=== PATIENT | male | born 1970 | race Hispanic/Latino ===

== ENCOUNTER 2020-03-12 21:00 | Emergency (ER) | payer SELFPAY ==
[2020-03-12 21:44] VITALS: BP 150/76
[2020-03-12 22:08] LABS: Basophils % (Auto) 0.5 % (0.0-1.8); Eosinophils % (Auto) 0.5 % (0.0-4.3); Hematocrit 49.3 % (35.5-45.6); Hemoglobin 16.1 gm/dl (11.8-15.2); Lymphocytes # (Auto) 2.7 K/mm3 (1.2-5.4); Lymphocytes % (Auto) 26.6 % (13.4-35.0); Mean Corpuscular HGB Conc 33 % (32-34); Mean Corpuscular Volume 89 fl (84-94); Monocytes # (Auto) 0.7 K/mm3 (0.0-0.8); Monocytes % (Auto) 7.2 % (0.0-7.3); Platelet Count 223 K/mm3 (140-440); Red Blood Count 5.52 M/mm3 (3.65-5.03); Red Cell Distribution Width 16.1 % (13.2-15.2)
[2020-03-12 22:13] LABS: BUN/Creatinine Ratio 4; Blood Urea Nitrogen 4 mg/dL (9-20); Calcium 9.3 mg/dL (8.4-10.2); Hemolysis Index 10
[2020-03-12 23:26] LABS: Bilirubin,Urine NEG (Negative); Blood,Urine NEG (Negative); Color,Urine Yellow (Yellow); Mucus,Urine 1+ /HPF; Protein,Urine <15 mg/dL mg/dL (Negative); WBC,Urine < 1.0 /HPF (0.0-6.0)
[2020-03-13] MEDS ORDERED: SODIUM CHLORIDE 0.9% 1000 ML 1,000 ML IV ONE (01:17)
[2020-03-13] MEDS ORDERED: KETOROLAC 30 MG/1 ML INJ IV ONE (01:17)
[2020-03-13] MEDS ORDERED: ONDANSETRON 4 MG/2 ML INJ IV ONE (01:17)
[2020-03-13] MEDS ORDERED: FAMOTIDINE 20 MG/2 ML INJ IV ONE (01:17)
--- NOTE | 2020-03-13 03:34 | Cat Scan Report ---
CT abdomen pelvis w con INDICATION / CLINICAL INFORMATION: Patient complains of R.L.Q. abdominal pain. TECHNIQUE: Axial CT imaging of abdomen and pelvis was obtained with IV contrast. Coronal and sagittal reformatte d imaging obtained and reviewed. All CT scans at this location are performed using CT dose reduction for ALARA by means of automated exposure control. COMPARISON: None available. FINDINGS: CT abdomen with contrast demonstrates a very small cyst within the dome of the liver. The liver is ot herwise unremarkable. The spleen, pancreas, kidneys, and adrenal glands all appear grossly unremarkab le. Gallbladder has a normal appearance. No biliary dilatation. CT pelvis with contrast demonstrates normal appearance of the appendix. No pelvic mass, free fluid, o r focal inflammatory changes noted. Prostate gland is minimally enlarged. Mild diverticulosis is note d throughout the descending colon and sigmoid colon. No evidence of diverticulitis.. Visualized lung bases are clear. No acute significant osseous abnormality. IMPRESSION: 1. No acute finding within the abdomen or pelvis. More specifically no evidence for appendicitis. 2. Diverticulosis without evidence for diverticulitis. Signer Name: Mabel English MD Signed: 03/13/2020 3:29 AM Workstation Name: [employer]
--- NOTE | 2020-03-13 04:34 | Emergency Department Report ---
ED Abdominal Pain HPI - General Chief Complaint: Weakness Stated Complaint: ABD PAIN Source: patient Mode of arrival: Ambulatory Limitations: No Limitations - History of Present Illness Initial Comments: Patient is a 49-year-old -[place] male with no past medical history presents to the ED with complaint of acute onset persistent diffuse low abdominal pain with nausea and vomiting and diarrhea for the last 3 days. Patient states that he has not been able to keep anything down especially in the last 2 days. Patient denies fever, chills, chest pain, shortness of breath, dysuria, urinary frequency and urgency, testicular pain, back pain, dizziness, numbness and tingling or weakness of lower extremities bilaterally, change in vision, headache, sore throat, nasal and sinus congestion. MD Complaint: abdominal pain, other (Nausea, vomiting and diarrhea) -: Sudden, days(s) (3) Location: LLQ, RLQ, suprapubic Radiation: LLQ, RLQ, suprapubic Migration to: no migration Severity scale (0 -10): 6 Quality: cramping, sharp Consistency: constant Improves With: nothing Worsens With: nothing Context: possible food poisoning Associated Symptoms: denies other symptoms, nausea, vomiting, diarrhea. denies: fever, dysuria, hematemesis, hematochezia, melena, hematuria, anorexia, syncope, other - Related Data Previous Rx's Medication Instructions Recorded Last Taken Type Dicyclomine [Bentyl] 20 mg PO Q6H PRN #24 tablet 03/13/20 Unknown Rx Famotidine [Pepcid] 20 mg PO BID #60 tablet 03/13/20 Unknown Rx Ondansetron [Zofran Odt] 4 mg PO Q8HR PRN #20 tab.rapdis 03/13/20 Unknown Rx Allergies Allergy/AdvReac Type Severity Reaction Status Date / Time No Known Allergies Allergy Verified 03/12/20 21:39 ED Review of Systems ROS: Stated complaint: ABD PAIN Other details as noted in HPI Constitutional: denies: chills, fever Eyes: denies: eye pain, eye discharge, vision change ENT: denies: ear pain, throat pain Respiratory: denies: cough, shortness of breath, wheezing Cardiovascular: denies: chest pain, palpitations Endocrine: no symptoms reported Gastrointestinal: abdominal pain, nausea, vomiting, diarrhea Genitourinary: denies: urgency, dysuria Musculoskeletal: denies: back pain, joint swelling, arthralgia Skin: denies: rash, lesions Neurological: denies: headache, weakness, paresthesias Psychiatric: denies: anxiety, depression Hematological/Lymphatic: denies: easy bleeding, easy bruising ED Past Medical Hx - Past Medical History Previous Medical History?: No - Surgical History Past Surgical History?: No - Social History Smoking Status: Never Smoker Substance Use Type: None - Medications Home Medications: Home Medications Medication Instructions Recorded Confirmed Last Taken Type Dicyclomine [Bentyl] 20 mg PO Q6H PRN #24 tablet 03/13/20 Unknown Rx Famotidine [Pepcid] 20 mg PO BID #60 tablet 03/13/20 Unknown Rx Ondansetron [Zofran Odt] 4 mg PO Q8HR PRN #20 tab.rapdis 03/13/20 Unknown Rx ED Physical Exam - General Limitations: No Limitations General appearance: alert, in no apparent distress - Head Head exam: Present: atraumatic, normocephalic, normal inspection - Eye Eye exam: Present: normal appearance, PERRL, EOMI Pupils: Present: normal accommodation - ENT ENT exam: Present: normal exam, normal orophraynx, mucous membranes moist, TM's normal bilaterally, normal external ear exam - Neck Neck exam: Present: normal inspection, full ROM - Respiratory Respiratory exam: Present: normal lung sounds bilaterally. Absent: respiratory distress, wheezes, rales, chest wall tenderness, accessory muscle use, prolonged expiratory - Cardiovascular Cardiovascular Exam: Present: normal rhythm, bradycardia, normal heart sounds. Absent: systolic murmur, diastolic murmur, rubs, gallop - GI/Abdominal GI/Abdominal exam: Present: soft, tenderness (Palpable mild diffuse lower abd ominal tenderness), normal bowel sounds. Absent: distended, guarding, rebound, hyperactive bowel sounds, hypoactive bowel sounds, organomegaly - Extremities Exam Extremities exam: Present: normal inspection, full ROM, normal capillary refill - Back Exam Back exam: Present: normal inspection, full ROM. Absent: tenderness, CVA tenderness (R), CVA tenderness (L), muscle spasm, paraspinal tenderness, vertebral tenderness - Neurological Exam Neurological exam: Present: alert, oriented X3, CN II-XII intact, normal gait, reflexes normal - Psychiatric Psychiatric exam: Present: normal affect, normal mood - Skin Skin exam: Present: warm, dry, intact, normal color. Absent: rash ED Course Vital Signs 03/12/20 21:43 Temperature 98.1 F Pulse Rate 59 L Respiratory 17 Rate Blood Pressure 150/76 O2 Sat by Pulse 96 Oximetry ED Medical Decision Making - Lab Data Result diagrams: 03/12/20 21:45 03/12/20 21:45 - Radiology Data Radiology results: report reviewed, image reviewed Findings [facility] [address] [place] [address] Cat Scan Report Signed Patient: FORTUNATO LEHMAN MR#: [id number] 36 : 1970 Acct:[id number] Age/Sex: 49 / M ADM Date: 03/12/20 Loc: ED Attending Dr: Ordering Physician: ARNULFO FRIAS Date of Service: 03/13/20 Procedure(s): CT abdomen pelvis w con Accession Number(s): [id number] cc: ARNULFO FRIAS CT abdomen pelvis w con INDICATION / CLINICAL INFORMATION: Patient complains of R.L.Q. abdominal pain. TECHNIQUE: Axial CT imaging of abdomen and pelvis was obtained with IV contrast. Coronal and sagittal reformatted imaging obtained and reviewed. All CT scans at this location are performed using CT dose reduction for ALARA by means of automated exposure control. COMPARISON: None available. FINDINGS: CT abdomen with contrast demonstrates a very small cyst within the dome of the liver. The liver is otherwise unremarkable. The spleen, pancreas, kidneys, and adrenal glands all appear grossly unremarkable. Gallbladder has a normal appearance. No biliary dilatation. CT pelvis with contrast demonstrates normal appearance of the appendix. No pelvic mass, free fluid, or focal inflammatory changes noted. Prostate gland is minimally enlarged. Mild diverticulosis is noted throughout the descending colon and sigmoid colon. No evidence of diverticulitis.. Visualized lung bases are clear. No acute significant osseous abnormality. IMPRESSION: 1. No acute finding within the abdomen or pelvis. More specifically no evidence for appendicitis. 2. Diverticulosis without evidence for diverticulitis. Signer Name: Mabel English MD Signed: 03/13/2020 3:29 AM Workstation Name: [id number] Transcribed By: JR Dictated By: Mabel English MD Electronically Authenticated By: Mabel English MD Signed Date/Time: 03/13/20328 DD/ 4 TD/TT: - Medical Decision Making This is a 49-year-old -Pakistani male with no past medical history presents to the ED with complaint of acute onset persistent diffuse low abd ominal pain with nausea and vomiting and diarrhea for the last 3 days. Patient states that he has not been able to keep anything down especially in the last 2 days. In the ED, patient is alert and oriented x3 and is not in any distress. Patient was treated for pain in the ED and also treated with antiemetics, with normal saline 1 L IV bolus x1. Lab test results were reviewed and are all nonactionable. Abdomen pelvis CT scan with contrast showed no acute abnormalities in the abdomen and pelvis. On reevaluation, patient pain and nausea and vomiting resolved with medications. Patient was discharged home on medication and advised to follow-up with his primary care physician in 5 to 7 days for reevaluation. Patient was also advised to maintain a clear liquid diet for 12 to 24 hours. Patient is advised return to the ED immediately if symptoms get worse. - Differential Diagnosis Gastroenteritis; diverticulitis; colitis; appendicitis; UTI; kidney stone Critical care attestation.: If time is entered above; I have spent that time in minutes in the direct care of this critically ill patient, excluding procedure time. ED Disposition Clinical Impression: Abdominal pain in male, Nausea, vomiting and diarrhea, Viral gastroenteritis Disposition: DC-01 TO HOME OR SELFCARE Is pt being admited?: No Does the pt Need Aspirin: No Condition: Stable Instructions: Viral Gastroenteritis, Adult, [id number], Abdominal Pain, Adult, [id number], Nausea and Vomiting, Adult, [id number], Diarrhea, Adult, [id number] Additional Instructions: All lab test results are unremarkable. Abdomen pelvis CT scan with contrast showed no acute abnormalities. Therefore maintain a clear liquid diet for 12 to 24 hours, take medications and drink plenty of fluids. Follow-up with your primary care physician in 5 to 7 days for reevaluation or return to the ED immediately if symptoms get worse. Prescriptions: Dicyclomine [Bentyl] 20 mg PO Q6H PRN #24 tablet PRN Reason: Abdominal pain Famotidine [Pepcid] 20 mg PO BID #60 tablet Ondansetron [Zofran Odt] 4 mg PO Q8HR PRN #20 tab.rapdis PRN Reason: Nausea Referrals: [facility] [Provider Group] - 3-5 Days Time of Disposition: 04:36 Print Language: [place]
== END 2020-03-13 05:35 | disposition home or self-care (01) ==
LOC: ED 21:00
DX: A08.4 Viral intestinal infection, unspecified (principal); R11.2 Nausea with vomiting, unspecified; R19.7 Diarrhea, unspecified; R10.9 Unspecified abdominal pain; Z79.899 Other long term (current) drug therapy
CPT/HCPCS: 36415; 74177; 80048; 81001; 85025; 96361; 96374; 96375; 99284; J1885; J2405; J7030; Q9967

== ENCOUNTER 2020-03-16 08:16 | Emergency (ER) | payer SELFPAY ==
[2020-03-16 09:01] VITALS: BP 122/74
[2020-03-16] MEDS ORDERED: SODIUM CHLORIDE 0.9% 1000 ML 1,000 ML IV ONE (10:52)
[2020-03-16] MEDS ORDERED: ONDANSETRON 4 MG/2 ML INJ IV ONE (10:53)
--- NOTE | 2020-03-16 11:29 | Emergency Department Report ---
HPI - General Chief Complaint: Nausea/Vomiting/Diarrhea Time Seen by Provider: 03/16/20 10:49 - HPI HPI: This is a 49-year-old male presents to the emergency department with complaint of a 4 to 5-day history of abdominal pain, nausea, vomiting, diarrhea. Patient also says that he has been having some black stool. The patient was here on 03/13/2020, for the same symptoms. At that time he was treated with some IV fluid, antiemetics, reflux medication and had improvement. He had a CT scan of the abdomen pelvis that showed some diverticulosis without diverticulitis. Patient denies any past medical history. He said he was doing better until yesterday morning when he tried to eat some breakfast. The patient says "after that it was over." He once again began having the aforementioned symptoms. He has been taking the prescribed Pepcid but has not been taking the Zofran ODT. Patient also took some Pepto-Bismol yesterday without much relief. No recent travel or sick contacts at home. No known exposure to anyone with COVID-19. He does not have a primary care physician for follow-up. The abdominal pain is currently 3 out of 10 in intensity, and aching pain, and intermittent. ED Past Medical Hx - Past Medical History Previous Medical History?: No - Surgical History Past Surgical History?: Yes Additional Surgical History: Wrist - Social History Smoking Status: Smoker, Current Status Unknown Substance Use Type: Alcohol - Medications Home Medications: Home Medications Medication Instructions Recorded Confirmed Last Taken Type Dicyclomine [Bentyl] 20 mg PO Q6H PRN #24 tablet 03/13/20 Unknown Rx Famotidine [Pepcid] 20 mg PO BID #60 tablet 03/13/20 Unknown Rx Ondansetron [Zofran Odt] 4 mg PO Q8HR PRN #20 tab.rapdis 03/13/20 Unknown Rx ED Review of Systems ROS: Stated complaint: ABD PAIN Other details as noted in HPI Comment: All other systems reviewed and negative Constitutional: denies: chills, fever Eyes: denies: eye pain, vision change ENT: denies: ear pain, throat pain Respiratory: denies: cough, shortness of breath Cardiovascular: denies: chest pain, palpitations Gastrointestinal: abdominal pain, nausea, vomiting, diarrhea, melena Genitourinary: denies: dysuria, discharge Musculoskeletal: denies: joint swelling, arthralgia Skin: denies: rash, lesions Neurological: denies: headache, weakness Physical Exam - Physical Exam Vital Signs: Vital Signs 03/16/20 08:58 Temperature 98.0 F Pulse Rate 71 Respiratory 20 Rate Blood Pressure 122/74 O2 Sat by Pulse 99 Oximetry Physical Exam: GENERAL: The patient is well-developed well-nourished. HENT: Normocephalic. Atraumatic. Patient has moist mucous membranes. EYES: Extraocular motions are intact. NECK: Supple. Trachea is midline. CHEST/LUNGS: Clear to auscultation. There is no respiratory distress noted. HEART/CARDIOVASCULAR: Regular. There is no tachycardia. There is no murmur. ABDOMEN: Abdomen is soft. Mild lower abdominal tenderness to palpation. No gu arding. Patient has normal bowel sounds. There is no abdominal distention. SKIN: Skin is warm and dry. NEURO: The patient is awake, alert, and oriented. The patient is cooperative. The patient has no focal neurologic deficits. Normal speech. MUSCULOSKELETAL: There is no tenderness or deformity. There is no limitation range of motion. RECTAL: No gross blood. Stool is negative on guaiac testing. Stool is brown. ED Course Vital Signs 03/16/20 08:58 Temperature 98.0 F Pulse Rate 71 Respiratory 20 Rate Blood Pressure 122/74 O2 Sat by Pulse 99 Oximetry - Reevaluation(s) Reevaluation #1: 03/16/20 15:31 Lab Results 03/16/20 03/16/20 03/16/20 Range/Units 09:14 11: 11:20 WBC 10.6 (4.5-11.0) K/mm3 RBC 5.73 H (3.65-5.03) M/mm3 Hgb 17.0 H (11.8-15.2) gm/dl Hct 51.7 H (35.5-45.6) % MCV 90 (84-94) fl MCH 30 (28-32) pg MCHC 33 (32-34) % RDW 15.8 H (13.2-15.2) % Plt Count 217 (140-440) K/mm3 Lymph % (Auto) [employer] [place] % (Auto) [employer] Eos % (Auto) [employer] Baso % (Auto) [employer] Lymph # (Auto) Inspector [employer] [place] # (Auto) [employer] Eos # (Auto) Inspector [employer] Baso # (Auto) [employer] Seg Neutrophils % [employer] Seg Neutrophils # [employer] PT (12.2-14.9) Sec. INR (0.87-1.13) APTT (24.2-36.6) Sec. Sodium 136 L (137-145) mmol/L Potassium 4.0 (3.6-5.0) mmol/L Chloride 104.7 (98-107) mmol/L Carbon Dioxide 18 L D (22-30) mmol/L Anion Gap 17 mmol/L BUN 6 L (9-20) mg/dL Creatinine 0.9 (0.8-1.3) mg/dL Estimated GFR > 60 ml/min BUN/Creatinine Ratio 7 % Glucose 72 L (75-100) mg/dL POC Glucose 102 (70-105) mg/dL Calcium 9.3 (8.4-10.2) mg/dL Total Bilirubin 0.70 (0.1-1.2) mg/dL AST 25 (5-40) units/L ALT 18 (7-56) units/L Alkaline Phosphatase 77 (35-129) units/L Total Protein 7.5 (6.3-8.2) g/dL Albumin 4.4 (3.9-5) g/dL Albumin/Globulin Ratio 1.4 % Lipase 111 H (13-60) units/L 11/13/20 Range/Units 11:53 WBC (4.5-11.0) K/mm3 RBC (3.65-5.03) M/mm3 Hgb (11.8-15.2) gm/dl Hct (35.5-45.6) % MCV (84-94) fl MCH (28-32) pg MCHC (32-34) % RDW (13.2-15.2) % Plt Count (140-440) K/mm3 Lymph % (Auto) [place] % (Auto) Eos % (Auto) Baso % (Auto) Lymph # (Auto) [place] # (Auto) Eos # (Auto) Baso # (Auto) Seg Neutrophils % Seg Neutrophils # PT 13.5 (12.2-14.9) Sec. INR 1.01 (0.87-1.13) APTT 27.0 (24.2-36.6) Sec. Sodium (137-145) mmol/L Potassium (3.6-5.0) mmol/L Chloride (98-107) mmol/L Carbon Dioxide (22-30) mmol/L Anion Gap mmol/L BUN (9-20) mg/dL Creatinine (0.8-1.3) mg/dL Estimated GFR ml/min BUN/Creatinine Ratio % Glucose (75-100) mg/dL POC Glucose (70-105) mg/dL Calcium (8.4-10.2) mg/dL Total Bilirubin (0.1-1.2) mg/dL AST (5-40) units/L ALT (7-56) units/L Alkaline Phosphatase (35-129) units/L Total Protein (6.3-8.2) g/dL Albumin (3.9-5) g/dL Albumin/Globulin Ratio % Lipase (13-60) units/L ED Medical Decision Making - Lab Data Result diagrams: 03/16/20 11:20 03/16/20 11:20 - Radiology Data Radiology results: image reviewed interpreted by me: Abdominal x-ray shows nonspecific nonobstructive bowel gas - Medical Decision Making This patient presents to the emergency department with complaint of abdominal pain, nausea, vomiting, diarrhea, and the complaint of some dark stool. His abdomen is mildly tender in the lower quadrants. However, the abdomen is soft, nondistended and nontoxic in appearance. Labs have been mostly unremarkable except for an elevation in the lipase, which may be secondary to the patient's nausea and vomiting. He had a CT scan of the abdomen and pelvis 3 days ago that does not show any signs of pancreatitis or an y other acute process. Abdominal x-ray today shows nonspecific nonobstructive bowel gas. A rectal examination was done that did not show any gross blood, melena, and the stool obtained was negative on guaiac testing. Patient was given some IV fluid resuscitation and a dose of IV antiemetics. He was reevaluated multiple times over multiple hours and is feeling improved. He was able to pass an oral challenge. For all these reasons patient appears safe for discharge home at this time. He has been given outpatient referral for gastroenterology. He should still have medication from his previous visit 3 days ago, Bentyl, Zofran, Pepcid. He will return to the emergency department any worsening of his symptoms or with any acute distress. Critical Care Time: No Critical care attestation.: If time is entered above; I have spent that time in minutes in the direct care of this critically ill patient, excluding procedure time. ED Disposition Clinical Impression: Nausea, vomiting and diarrhea, Abdominal pain in male Disposition: - TO HOME OR SELFCARE Is pt being admited?: No Condition: Stable Instructions: Diarrhea, Adult, Abdominal Pain, Adult, Nausea and Vomiting, Adult Additional Instructions: Please follow-up with a primary care physician in the next few days. Increase your oral rehydration. I have given you a referral for a local power lineman, Dr. Alonso Roberson, to follow-up regarding your abdominal pains and your concern for dark stools. Return to the emergency department with any worsening of your symptoms, new or concerning symptoms not addressed during this current emergency department visit, or with any acute distress. Referrals: PRIMARY MD LISA [Primary Care Provider] - 3-5 Days JOSÉ MIGUEL ROBERSON MD [Staff Physician] - 3-5 Days MARIEL COLBERT MD [Staff Physician] - 3-5 Days [facility] [Provider Group] - 3-5 Days Time of Disposition: 14:23
--- NOTE | 2020-03-16 11:54 | XRay Report ---
ABDOMEN 2 VIEWS INDICATION / CLINICAL INFORMATION: Abd pain. COMPARISON: CT dated 03/13/20 FINDINGS: TUBES / LINES: None. BOWEL GAS PATTERN: No significant abnormality. FREE AIR / EXTRALUMINAL GAS: None seen. ADDITIONAL FINDINGS: No significant additional findings. CHEST: Visualized chest shows no significant abnormality. IMPRESSION: 1. No acute findings. Signer Name: Willem Espinal MD Signed: 03/16/2020 11:50 AM Workstation Name: [id number]
[2020-03-16 12:26] LABS: INR 1.01 (0.87-1.13)
[2020-03-16 12:27] LABS: Hematocrit 51.7 % (35.5-45.6); Mean Corpuscular HGB Conc 33 % (32-34); Mean Corpuscular Volume 90 fl (84-94); Platelet Count 217 K/mm3 (140-440); Red Blood Count 5.73 M/mm3 (3.65-5.03); Red Cell Distribution Width 15.8 % (13.2-15.2)
[2020-03-16 12:36] LABS: Alanine Aminotransferase 18 units/L (7-56); Albumin 4.4 g/dL (3.9-5); BUN/Creatinine Ratio 7; Blood Urea Nitrogen 6 mg/dL (9-20); Calcium 9.3 mg/dL (8.4-10.2); Hemolysis Index 25
== END 2020-03-16 14:40 | disposition home or self-care (01) ==
LOC: ED 08:16
DX: R10.84 Generalized abdominal pain (principal); R11.2 Nausea with vomiting, unspecified; R19.7 Diarrhea, unspecified
CPT/HCPCS: 36415; 74019; 80053; 82962; 83690; 85025; 85610; 85730; 96361; 96374; 99284; J2405; J7030; 96368

== ENCOUNTER 2020-03-28 13:34 | Inpatient (IN) | payer OTHER ==
--- NOTE | 2020-03-28 14:55 | Event Note ---
ED Screening Note Date of service: 03/28/20 Time: 14:51 ED Screening Note: 49-year-old -[place] male presents to the emergency room for the third time for abdominal pain. Patient was discharged home on Zofran Pepcid and Bentyl. Patient has not followed up with a primary care provider or GI specialist at this time. Patient states that he is having nausea vomiting. It was noted in his last visit his lipase is elevated at 111. Patient denies any use of alcohol beverages. This initial assessment/diagnostic orders/clinical plan/treatment(s) is/are subject to change based on patients health status, clinical progression and re- assessment by fellow clinical providers in the ED. Further treatment and workup at subsequent clinical providers discretion. Patient/guardian urged not to elope from the ED as their condition may be serious if not clinically assessed and managed. Initial orders include: cbc, cmp lipase
[2020-03-28 16:01] LABS: Basophils # (Auto) 0.1 K/mm3 (0.0-0.1); Basophils % (Auto) 0.5 % (0.0-1.8); Eosinophils % (Auto) 0.2 % (0.0-4.3); Hematocrit 51.5 % (35.5-45.6); Hemoglobin 17.1 gm/dl (11.8-15.2); Lymphocytes # (Auto) 2.4 K/mm3 (1.2-5.4); Lymphocytes % (Auto) 19.6 % (13.4-35.0); Mean Corpuscular HGB Conc 33 % (32-34); Mean Corpuscular Volume 88 fl (84-94); Monocytes # (Auto) 0.6 K/mm3 (0.0-0.8); Monocytes % (Auto) 4.6 % (0.0-7.3); Platelet Count 230 K/mm3 (140-440); Red Blood Count 5.83 M/mm3 (3.65-5.03); Red Cell Distribution Width 15.1 % (13.2-15.2)
[2020-03-28 16:23] LABS: Alanine Aminotransferase 23 units/L (7-56); Albumin 4.4 g/dL (3.9-5); BUN/Creatinine Ratio 8; Blood Urea Nitrogen 6 mg/dL (9-20); Calcium 9.4 mg/dL (8.4-10.2); Hemolysis Index 84
[2020-03-28] MEDS ORDERED: SODIUM CHLORIDE 0.9% 1000 ML 1,000 ML ONE (20:30)
[2020-03-28] MEDS ORDERED: SODIUM CHLORIDE 0.9% 1000 ML 1,000 ML IV ONE ×2 (20:32→22:30)
[2020-03-28] MEDS ORDERED: ONDANSETRON 4 MG/2 ML INJ IV STA (20:32)
[2020-03-28] MEDS ORDERED: HYOSCYAMINE SUBL 0.125 MG TAB SL ONE (20:32)
[2020-03-28] MEDS ORDERED: KETOROLAC 30 MG/1 ML INJ IV STA (20:32)
--- NOTE | 2020-03-28 21:29 | Cat Scan Report ---
CT ABDOMEN AND PELVIS WITH CONTRAST INDICATION / CLINICAL INFORMATION: lower abdominal pain. TECHNIQUE: Axial CT images were obtained through the abdomen and pelvis after IV contrast. All CT scans at this location are performed using CT dose reduction for ALARA by means of automated exposure control. COMPARISON: 03/13/2020 FINDINGS: LOWER CHEST: No significant abnormality. LIVER: Stable hypoattenuating lesions in bilateral hepatic lobes likely represent small simple cysts. GALLBLADDER: No significant abnormality. BILE DUCTS: No significant abnormality. PANCREAS: No significant abnormality. SPLEEN: No significant abnormality. ADRENALS: No significant abnormality. RIGHT KIDNEY / URETER: No significant abnormality. LEFT KIDNEY / URETER: No significant abnormality. STOMACH / SMALL BOWEL: No significant abnormality. COLON: Persistent colonic diverticulosis without evidence of diverticulitis. APPENDIX: Interval thickening of the appendix now measuring 9 mm in cross sectional diameter (6 mm pr eviously) best seen series 2 image 103. There is no evidence of significant periappendiceal fat stran ding or fluid collection. PERITONEUM: No free fluid. No free air. No fluid collection. LYMPH NODES: No significant adenopathy. AORTA / ARTERIES: Mild atherosclerotic calcification without acute abnormality. IVC / VEINS: No significant abnormality. URINARY BLADDER: No significant abnormality. REPRODUCTIVE ORGANS: No significant abnormality. ADDITIONAL FINDINGS: None. SKELETAL SYSTEM: Multilevel degenerative changes are noted of the spine. No aggressive osseous lesion s. IMPRESSION: 1. Interval thickening of the appendix when compared to prior exam dated 03/13/2020. There is still n o significant periappendiceal fat stranding, however,given the interval change this likely represents a developing appendicitis. 2. Persistent colonic diverticulosis without evidence of diverticulitis. Signer Name: Joshua Larson MD Signed: 03/28/2020 9:24 PM Workstation Name: [id number]
[2020-03-28] MEDS ORDERED: PIPERACILLIN/TAZOBACTAM 3.375 3.375 GM/50 ML BAG IV ONE (22:07)
--- NOTE | 2020-03-28 22:14 | Emergency Department Report ---
ED Abdominal Pain HPI - General Chief Complaint: Abdominal Pain Stated Complaint: UPSET STOMACH Time Seen by Provider: 03/28/20 20:16 Source: patient Mode of arrival: Ambulatory Limitations: No Limitations - History of Present Illness Initial Comments: 49-year-old -[place] male presents emergency department for the third time this month for the same for the same symptoms of abdominal pain with associated vomiting of an apparent unknown etiology was initially seen on the of this month with CT scan did show diverticulosis and he was seen again about 3 days later and then again tonight. States that for the last few nights he has been having worsening pain across his lower abdomen associated with nausea and and and and vomiting worse with any attempt to eat. He reports no no diarrhea, no constipation, no fever, chills, sweats. Reports no trauma reports no hematuria no hematemesis no hematochezia no no dysuria. MD Complaint: abdominal pain Location: LLQ, RLQ Radiation: none Migration to: no migration Severity: mild Severity scale (0 -10): 4 Quality: dull Consistency: constant Improves With: nothing Associated Symptoms: nausea, vomiting. denies: constipation, dysuria, hematem esis, hematuria, anorexia, syncope - Related Data Previous Rx's Medication Instructions Recorded Last Taken Type Dicyclomine [Bentyl] 20 mg PO Q6H PRN #24 tablet 03/13/20 Unknown Rx Famotidine [Pepcid] 20 mg PO BID #60 tablet 03/13/20 Unknown Rx Ondansetron [Zofran Odt] 4 mg PO Q8HR PRN #20 tab.rapdis 03/13/20 Unknown Rx Allergies Allergy/AdvReac Type Severity Reaction Status Date / Time No Known Allergies Allergy Verified 03/12/20 21:39 ED Review of Systems ROS: Stated complaint: UPSET STOMACH Other details as noted in HPI Comment: All other systems reviewed and negative ED Past Medical Hx - Past Medical History Previous Medical History?: No - Surgical History Past Surgical History?: No Additional Surgical History: Wrist - Social History Smoking Status: Former Smoker - Medications Home Medications: Home Medications Medication Instructions Recorded Confirmed Last Taken Type Dicyclomine [Bentyl] 20 mg PO Q6H PRN #24 tablet 03/13/20 Unknown Rx Famotidine [Pepcid] 20 mg PO BID #60 tablet 03/13/20 Unknown Rx Ondansetron [Zofran Odt] 4 mg PO Q8HR PRN #20 tab.rapdis 03/13/20 Unknown Rx ED Physical Exam - General Limitations: No Limitations General appearance: alert, in no apparent distress - Head Head exam: Present: atraumatic, normocephalic - Eye Eye exam: Present: normal appearance, EOMI Pupils: Present: normal accommodation, irregular - ENT ENT exam: Present: mucous membranes moist - Neck Neck exam: Present: normal inspection - Respiratory Respiratory exam: Present: normal lung sounds bilaterally. Absent: respiratory distress - Cardiovascular Cardiovascular Exam: Present: regular rate, normal rhythm. Absent: systolic murmur, diastolic murmur, rubs, gallop - GI/Abdominal GI/Abdominal exam: Present: soft, tenderness, normal bowel sounds. Absent: distended, guarding, rebound, hyperactive bowel sounds, hypoactive bowel sounds, bruit, pulsatile mass - Rectal Rectal exam: Present: deferred - Extremities Exam Extremities exam: Present: normal inspection - Back Exam Back exam: Present: normal inspection - Neurological Exam Neurological exam: Present: alert, oriented X3 - Psychiatric Psychiatric exam: Present: normal affect, normal mood - Skin Skin exam: Present: warm, dry, intact, normal color. Absent: rash ED Course Vital Signs 03/28/20 14:12 Temperature 98.5 F Pulse Rate 75 Respiratory 19 Rate Blood Pressure 136/79 O2 Sat by Pulse 93 Oximetry ED Medical Decision Making - Lab Data Result diagrams: 03/28/20 15:28 03/28/20 15:28 - Radiology Data Radiology results: report reviewed Referring Physician:JOSE LANDEROSPatient Name:FORTUNATO LEHMANPatient ID:[id number] of :[id number]:MaleAccession:[id number] Date:[id number] Status:Finalized Findings [facility] [address] [place] [address] Cat Scan Report Signed Patient: FORTUNATO LEHMAN MR#: [id number] 36 : 1970 Acct:[id number] Age/Sex: 49 / M ADM Date: 03/28/20 Loc: ED Attending Dr: Ordering Physician: ARNULFO BOWSER Date of Service: 03/28/20 Procedure(s): CT abdomen pelvis w con Accession Number(s): [id number] cc: ARNULFO BOWSER CT ABDOMEN AND PELVIS WITH CONTRAST INDICATION / CLINICAL INFORMATION: lower abdominal pain. TECHNIQUE: Axial CT images were obtained through the abdomen and pelvis after IV contrast. All CT scans at this location are performed using CT dose reduction for ALARA by means of automated exposure control. COMPARISON: 03/13/2020 FINDINGS: LOWER CHEST: No significant abnormality. LIVER: Stable hypoattenuating lesions in bilateral hepatic lobes likely represent small simple cysts. GALLBLADDER: No significant abnormality. BILE DUCTS: No significant abnormality. PANCREAS: No significant abnormality. SPLEEN: No significant abnormality. ADRENALS: No significant abnormality. RIGHT KIDNEY / URETER: No significant abnormality. LEFT KIDNEY / URETER: No significant abnormality. STOMACH / SMALL BOWEL: No significant abnormality. COLON: Persistent colonic diverticulosis without evidence of diverticulitis. APPENDIX: Interval thickening of the appendix now measuring 9 mm in cross sectional diameter (6 mm previously) best seen series 2 image 103. There is no evidence of significant periappendiceal fat stranding or fluid collection. PERITONEUM: No free fluid. No free air. No fluid collection. LYMPH NODES: No significant adenopathy. AORTA / ARTERIES: Mild atherosclerotic calcification without acute abnormality. IVC / VEINS: No significant abnormality. URINARY BLADDER: No significant abnormality. REPRODUCTIVE ORGANS: No significant abnormality. ADDITIONAL FINDINGS: None. SKELETAL SYSTEM: Multilevel degenerative changes are noted of the spine. No aggressive osseous lesions. IMPRESSION: 1. Interval thickening of the appendix when compared to prior exam dated 03/13/2020. There is still no significant periappendiceal fat stranding, however,given the interval change this likely represents a developing appendicitis. 2. Persistent colonic diverticulosis without evidence of diverticulitis. Signer Name: Joshua Collazo MD Signed: 03/28/2020 9:24 PM Workstation Name: [id number] Transcribed By: Dictated By: JOSHUA COLLAZO Electronically Authenticated By: JOSHUA COLLAZO Signed Date/Time: 03/28/202123 DD/ 14 TD/TT: Critical care attestation.: If time is entered above; I have spent that time in minutes in the direct care of this critically ill patient, excluding procedure time. ED Disposition Clinical Impression: Abdominal pain, Appendicitis Disposition: OP ADMIT IP TO THIS HOSP Is pt being admited?: Yes Does the pt Need Aspirin: No Condition: Stable Referrals: PRIMARY CARE,MD [Primary Care Provider] - 3-5 Days
[2020-03-28] MEDS ORDERED: MORPHINE 4 MG/1 ML INJ IV ONE (22:18)
[2020-03-28] MEDS ORDERED: ACETAMINOPHEN 325 MG TAB PO PRN (22:43)
--- NOTE | 2020-03-28 22:53 | History and Physical Report ---
History of Present Illness Date of examination: 03/28/20 Date of admission: 03/28/2020 Chief complaint: Nausea and Vomiting Abdominal pain History of present illness: 49-year-old -[place] male presenting to the emergency room today complaining of nausea and vomiting with accompanying abdominal pain. Patient has been seen in the emergency room on multiple occasions for similar complaints lately. This is his third visit to the emergency room. Abdominal pain is said to be more in the lower abdomen. He denies any fever or chills, no chest pain or shortness of breath, no headache or dizziness, he has had some increased frequency of urination and some minimal dysuria, denies any hematuria, no diarrhea, denies any recent travel or sick contacts, denies any contact with anyone with COVID-19. Work-up in the emergency room today reveals a possible developing appendicitis. Urinalysis and other labs has been unremarkable except for mild leukocytosis. Patient has been started on IV fluid, IV analgesic medication and empiric IV antibiotics. General surgeon on-call has been consulted by the ER physician. Past History Past Medical History: No medical history Past Surgical History: Other (Wrist surgery in the past) Social history: smoking (Former smoker) Family history: no significant family history Medications and Allergies Allergies Allergy/AdvReac Type Severity Reaction Status Date / Time No Known Allergies Allergy Verified 03/12/20 21:39 Home Medications Medication Instructions Recorded Confirmed Last Taken Type Dicyclomine [Bentyl] 20 mg PO Q6H PRN #24 tablet 03/13/20 Unknown Rx Famotidine [Pepcid] 20 mg PO BID #60 tablet 03/13/20 Unknown Rx Ondansetron [Zofran Odt] 4 mg PO Q8HR PRN #20 tab.rapdis 03/13/20 Unknown Rx Active Meds: Active Medications Acetaminophen (Tylenol) 650 mg PO Q4H PRN PRN Reason: Pain MILD(1-3)/Fever >100.5/WILEY Sodium Chloride (Nacl 0.9% 1000 Ml) 1,000 mls @ 250 mls/hr IV ONCE ONE Stop: 03/29/20 02:29 Last Admin: 03/28/20 22:32 Dose: 250 mls/hr Documented by: Sodium Chloride (Nacl 0.9% 1000 Ml) 1,000 mls @ 125 mls/hr IV DIRECT MARCUS Piperacillin Sod/Tazobactam Sod (Zosyn/Ns 3.375gm/50ml) 3.375 gm in 50 mls @ 100 mls/hr IV Q8HR MARCUS; Protocol Morphine Sulfate (Morphine) 2 mg IV Q4H PRN PRN Reason: Pain, Moderate (4-6) Ondansetron HCl (Zofran) 4 mg IV Q8H PRN PRN Reason: Nausea And Vomiting Sodium Chloride (Sodium Chloride Flush Syringe 10 Ml) 10 ml IV BID MARCUS Sodium Chloride (Sodium Chloride Flush Syringe 10 Ml) 10 ml IV PRN PRN PRN Reason: LINE FLUSH Review of Systems Constitutional: no fever, no chills Ears, nose, mouth and throat: no nasal congestion, no sore throat Cardiovascular: no chest pain, no palpitations Respiratory: no cough, no shortness of breath Gastrointestinal: abdominal pain, nausea, vomiting Genitourinary Male: dysuria, urinary frequency, no hematuria, no flank pain, no nocturia Musculoskeletal: no neck pain, no low back pain Integumentary: no rash, no pruritis Neurological: no headaches, no confusion Psychiatric: no anxiety, no depression Exam - Constitutional Vitals: Temp Pulse Resp BP Pulse Ox 98.5 F 75 19 136/79 93 03/28/20 14:12 03/28/20 14:12 03/28/20 14:12 03/28/20 14:12 03/28/20 14:12 General appearance: Present: no acute distress, well-nourished - EENT Eyes: Present: PERRL, EOM intact. Absent: scleral icterus ENT: hearing intact, clear oral mucosa, dentition normal - Neck Neck: Present: supple, normal ROM - Respiratory Respiratory effort: normal Respiratory: bilateral: CTA - Cardiovascular Rhythm: regular Heart Sounds: Present: S1 & S2. Absent: gallop, systolic murmur, diastolic murmur, rub - Extremities Extremities: no ischemia, pulses intact, pulses symmetrical, No edema, Full ROM Peripheral Pulses: within normal limits - Abdominal General gastrointestinal: Present: soft, tender, non-distended, normal bowel sounds. Absent: mass Localized gastrointestinal: tender: RLQ, suprapubic, guarding: suprapubic - Integumentary Integumentary: Present: clear, warm, dry. Absent: rash - Musculoskeletal Musculoskeletal: strength equal bilaterally - Psychiatric Psychiatric: appropriate mood/affect, intact judgment & insight, memory intact, cooperative - Neurologic Neurologic: CNII-XII intact, no focal deficits, moves all extremities Results - Labs CBC & Chem 7: 03/28/20 15:28 03/28/20 15:28 Labs: Abnormal lab results 03/28/20 03/28/20 Range/Units 15:28 15:28 WBC 12.1 H (4.5-11.0) K/mm3 RBC 5.83 H (3.65-5.03) M/mm3 Hgb 17.1 H (11.8-15.2) gm/dl Hct 51.5 H (35.5-45.6) % Seg Neutrophils % 75.1 H (40.0-70.0) % Seg Neutrophils # 9.1 H (1.8-7.7) K/mm3 Carbon Dioxide 21 L (22-30) mmol/L BUN 6 L (9-20) mg/dL Assessment and Plan - Patient Problems (1) Nausea and vomiting Current Visit: Yes Status: Acute Plan to address problem: Etiology is unclear. Patient has been placed on IV Zofran as needed. (2) Appendicitis Current Visit: Yes Status: Acute Plan to address problem: Consult placed to the general surgeon. Patient has also been placed on empiric IV antibiotics. (3) Abdominal pain Current Visit: Yes Status: Acute Plan to address problem: Possibly secondary to the intractable nausea and vomiting and also the underlying possible appendicitis. We will continue on IV analgesic medication. (4) DVT prophylaxis Current Visit: Yes Status: Acute Plan to address problem: Patient placed on sequential compression device. (5) Full code status Current Visit: Yes Status: Acute
[2020-03-28 22:58] LABS: Bilirubin,Urine NEG (Negative); Blood,Urine NEG (Negative); Color,Urine Yellow (Yellow); Mucus,Urine FEW /HPF; Protein,Urine <15 mg/dL mg/dL (Negative); Urobilinogen,Urine < 2.0 mg/dL (<2.0); WBC,Urine < 1.0 /HPF (0.0-6.0)
[2020-03-29] MEDS: MORPHINE 2 MG/1 ML INJ IV PRN ×2 (02:32→09:21)
[2020-03-29] MEDS: SODIUM CHLORIDE 0.9% 1000 ML 1,000 ML IV SCH ×3 (02:41→21:13)
[2020-03-29] MEDS ORDERED: PIPERACILLIN/TAZOBACTAM 3.375 3.375 GM/50 ML BAG IV SCH (06:00)
[2020-03-29] MEDS: PIPERACIL/TAZOBACTA 4.5/NS 100 4.5 GM/100 ML VIAL IV SCH ×3 (06:26→21:12)
[2020-03-29 07:32] LABS: Basophils % (Auto) 0.4 % (0.0-1.8); Eosinophils % (Auto) 0.3 % (0.0-4.3); Hematocrit 44.4 % (35.5-45.6); Hemoglobin 14.4 gm/dl (11.8-15.2); Lymphocytes # (Auto) 2.8 K/mm3 (1.2-5.4); Lymphocytes % (Auto) 24.2 % (13.4-35.0); Mean Corpuscular HGB Conc 32 % (32-34); Mean Corpuscular Volume 90 fl (84-94); Monocytes # (Auto) 0.6 K/mm3 (0.0-0.8); Monocytes % (Auto) 5.5 % (0.0-7.3); Platelet Count 224 K/mm3 (140-440); Red Blood Count 4.94 M/mm3 (3.65-5.03); Red Cell Distribution Width 14.7 % (13.2-15.2)
[2020-03-29 07:40] LABS: INR 1.07 (0.87-1.13)
[2020-03-29 07:55] LABS: BUN/Creatinine Ratio 9; Blood Urea Nitrogen 8 mg/dL (9-20); Calcium 8.2 mg/dL (8.4-10.2); Hemolysis Index 8
--- NOTE | 2020-03-29 10:02 | Consultation ---
History of Present Illness Consult date: 03/29/20 Reason for consult: other (I am asked to evaluate this patient for possible appendicitis) - History of present illness History of present illness: This is a 49 year old male with a 3 week hx of diarhea, the patient developed abd pain/diffuse three weeks ago and developed diarhea which persist, he has been seen in the ER 3 times and the most recent visit was found to have a WBC 12 K, Repeat CT abd pelvis which was normal, the only difference note was the patient's appendix increased in diameter from 6mm to 9mm, however there is NO stranding, no appendicolith, there is air in the appendix (not obstructed), I spoke with the Radiologist electric distribution checker and he reviewed the CT and does NOT think the patient has appendicitis by CT. The patient is very frustrated about what is causing his diarhea and abd pain. Past History Past Medical History: No medical history Past Surgical History: Other (Wrist surgery in the past) Social history: smoking (Former smoker) Family history: no significant family history Medications and Allergies Allergies Allergy/AdvReac Type Severity Reaction Status Date / Time No Known Allergies Allergy Verified 03/12/20 21:39 Home Medications Medication Instructions Recorded Confirmed Last Taken Type Dicyclomine [Bentyl] 20 mg PO Q6H PRN #24 tablet 03/13/20 Unknown Rx Famotidine [Pepcid] 20 mg PO BID #60 tablet 03/13/20 Unknown Rx Ondansetron [Zofran Odt] 4 mg PO Q8HR PRN #20 tab.rapdis 03/13/20 Unknown Rx Active Meds: Active Medications Acetaminophen (Tylenol) 650 mg PO Q4H PRN PRN Reason: Pain MILD(1-3)/Fever >100.5/WILEY Sodium Chloride (Nacl 0.9% 1000 Ml) 1,000 mls @ 125 mls/hr IV DIRECT MARCUS Last Admin: 03/29/20 02:41 Dose: 125 mls/hr Documented by: Piperacillin Sod/Tazobactam Sod (Zosyn/Ns 4.5gm/100ml) 4.5 gm in 100 mls @ 200 mls/hr IV Q8HR MARCUS; Protocol Last Admin: 03/29/20 06:26 Dose: 200 mls/hr Documented by: Morphine Sulfate (Morphine) 2 mg IV Q4H PRN PRN Reason: Pain, Moderate (4-6) Last Admin: 03/29/20 09:21 Dose: 2 mg Documented by: Ondansetron HCl (Zofran) 4 mg IV Q8H PRN PRN Reason: Nausea And Vomiting Sodium Chloride (Sodium Chloride Flush Syringe 10 Ml) 10 ml IV BID MARCUS Last Admin: 03/29/20 09:23 Dose: 10 ml Documented by: Sodium Chloride (Sodium Chloride Flush Syringe 10 Ml) 10 ml IV PRN PRN PRN Reason: LINE FLUSH Last Admin: 03/29/20 02:35 Dose: 10 ml Documented by: Review of Systems - Constitutional other (diarhea and abd pain/intermittant.) Exam Vital Signs Temp Pulse Resp BP Pulse Ox 98.5 F 75 19 136/79 93 03/28/20 14:12 03/28/20 14:12 03/28/20 14:12 03/28/20 14:12 03/28/20 14:12 - General physical appearance Positive: no distress - Eyes Positive: PERRL, normal occular movement - ENT Positive: normal pinna, normal nares, normal mucosa, no hearing loss, no congestion - Neck Positive: no masses, no bruits, trachea midline, no venous distension - Respiratory Positive: normal expansion, normal respiratory effort, clear to auscultation - Cardiovascular Rhythm: regular - Extremities Extremities: no ischemia, pulses symmetrical, No edema Peripheral Pulses: within normal limits - Breasts Breasts: deferred - Abdomen Abdomen: Present: soft, bowel sounds normal, other (no point tenderness to palpation RLQ, no rebound or guarding) Hernia: none - Neurologic Neurologic: alert and oriented to time, place and person, motor strength and sensation are grossly intact - Psychiatric Psychiatric: appropriate mood/affect, intact judgment & insight Results - Labs 03/29/20 07:14 03/29/20 07:14 Abnormal lab results 03/28/20 03/28/20 03/28/20 Range/Units 15:28 15:28 22:40 WBC 12.1 H (4.5-11.0) K/mm3 RBC 5.83 H (3.65-5.03) M/mm3 Hgb 17.1 H (11.8-15.2) gm/dl Hct 51.5 H (35.5-45.6) % Seg Neutrophils % 75.1 H (40.0-70.0) % Seg Neutrophils # 9.1 H (1.8-7.7) K/mm3 Potassium (3.6-5.0) mmol/L Chloride (98-107) mmol/L Carbon Dioxide 21 L (22-30) mmol/L BUN 6 L (9-20) mg/dL Calcium (8.4-10.2) mg/dL Ur Specific [place] > 1.059 H (1.003-1.030) 03/29/20 03/29/20 Range/Units 07:14 07:14 WBC 11.6 H (4.5-11.0) K/mm3 RBC (3.65-5.03) M/mm3 Hgb (11.8-15.2) gm/dl Hct (35.5-45.6) % Seg Neutrophils % (40.0-70.0) % Seg Neutrophils # 8.0 H (1.8-7.7) K/mm3 Potassium 3.5 L (3.6-5.0) mmol/L Chloride 111.0 H (98-107) mmol/L Carbon Dioxide (22-30) mmol/L BUN 8 L (9-20) mg/dL Calcium 8.2 L (8.4-10.2) mg/dL Ur Specific [place] (1.003-1.030) Diabetes panel 03/28/20 03/29/20 Range/Units 15:28 07:14 Sodium 140 142 (137-145) mmol/L Potassium 4.2 3.5 L (3.6-5.0) mmol/L Chloride 104.0 111.0 H (98-107) mmol/L Carbon Dioxide 21 L 22 (22-30) mmol/L BUN 6 L 8 L (9-20) mg/dL Creatinine 0.8 0.9 (0.8-1.3) mg/dL Glucose 89 81 (75-100) mg/dL Calcium 9.4 8.2 L (8.4-10.2) mg/dL AST 27 (5-40) units/L ALT 23 (7-56) units/L Alkaline Phosphatase 75 (35-129) units/L Total Protein 7.7 (6.3-8.2) g/dL Albumin 4.4 (3.9-5) g/dL Calcium panel 03/28/20 03/29/20 Range/Units 15:28 07:14 Calcium 9.4 8.2 L (8.4-10.2) mg/dL Albumin 4.4 (3.9-5) g/dL Pituitary panel 03/28/20 03/29/20 Range/Units 15:28 07:14 Sodium 140 142 (137-145) mmol/L Potassium 4.2 3.5 L (3.6-5.0) mmol/L Chloride 104.0 111.0 H (98-107) mmol/L Carbon Dioxide 21 L 22 (22-30) mmol/L BUN 6 L 8 L (9-20) mg/dL Creatinine 0.8 0.9 (0.8-1.3) mg/dL Glucose 89 81 (75-100) mg/dL Calcium 9.4 8.2 L (8.4-10.2) mg/dL Adrenal panel 03/28/20 03/29/20 Range/Units 15:28 07:14 Sodium 140 142 (137-145) mmol/L Potassium 4.2 3.5 L (3.6-5.0) mmol/L Chloride 104.0 111.0 H (98-107) mmol/L Carbon Dioxide 21 L 22 (22-30) mmol/L BUN 6 L 8 L (9-20) mg/dL Creatinine 0.8 0.9 (0.8-1.3) mg/dL Glucose 89 81 (75-100) mg/dL Calcium 9.4 8.2 L (8.4-10.2) mg/dL Total Bilirubin 0.40 (0.1-1.2) mg/dL AST 27 (5-40) units/L ALT 23 (7-56) units/L Alkaline Phosphatase 75 (35-129) units/L Total Protein 7.7 (6.3-8.2) g/dL Albumin 4.4 (3.9-5) g/dL Assessment and Plan Abd pain and diarhea x 3 weeks, mildly elevated WBC which could be secondary to diarhea, althought colon is normal on CT abd pelvis. I DO NOT think this patient has appendicitis/ the physical exam and hx DO not support this dx, I need GI input and I will continue to follow patient.The dialation of the appendix can be seen with diarhea and I will reemphesize lumen is patient,there is no appendicolithe, no stranding ,etc. I am OK with advancing diet if OK with GI.
--- NOTE | 2020-03-29 16:28 | Progress Note ---
Assessment and Plan - Patient Problems (1) Gastritis and gastroduodenitis Current Visit: Yes Status: Acute Plan to address problem: IV protonis and IV fluids IV Reglan and IV zpfran GI consult if necessary (2) Appendicitis Current Visit: Yes Status: Acute Qualifiers: Appendicitis type: acute appendicitis Plan to address problem: Ruled out per surgery (3) Nausea and vomiting Current Visit: Yes Status: Acute Qualifiers: Vomiting Intractability: intractable Plan to address problem: IV Zofran and IV reglan PRN (4) DVT prophylaxis Current Visit: Yes Status: Acute Plan to address problem: On SCd's and GI prophylaxis Subjective Date of service: 03/29/20 Principal diagnosis: Intractable abdominal pain Interval history: 49-year-old -[place] male presenting to the emergency room today complaining of nausea and vomiting with accompanying abdominal pain. Patient has been seen in the emergency room on multiple occasions for similar complaints lately. This is his third visit to the emergency room. Abdominal pain is said to be more in the lower abdomen. He denies any fever or chills, no chest pain or shortness of breath, no headache or dizziness, he has had some increased frequency of urination and some minimal dysuria, denies any hematuria, no diarrhea, denies any recent travel or sick contacts, denies any contact with anyone with COVID-19. Work-up in the emergency room today reveals a possible developing appendicitis. Urinalysis and other labs has been unremarkable except for mild leukocytosis. Patient has been started on IV fluid, IV analgesic medication and empiric IV antibiotics. General surgeon on-call has been consulted by the ER physician. Patient continues to have abdominal pain and constipation Epigastric pain 12/11 Objective - Constitutional Vitals: Vital Signs - 12hr 03/29/20 03/29/20 03/29/20 08:45 09:21 09:51 Temperature 98.2 F Pulse Rate 78 Respiratory 18 16 15 Rate Blood Pressure 139/79 Blood Pressure [Left] O2 Sat by Pulse 99 Oximetry 03/29/20 03/29/20 12:21 12:26 Temperature 98.0 F 97.9 F Pulse Rate 87 89 Respiratory 18 15 Rate Blood Pressure 147/74 Blood Pressure 133/66 [Left] O2 Sat by Pulse 98 98 Oximetry General appearance: Present: no acute distress, well-nourished - EENT Eyes: PERRL, EOM intact ENT: hearing intact, clear oral mucosa Ears: bilateral: normal - Neck Neck: supple, normal ROM - Respiratory Respiratory effort: normal Respiratory: bilateral: CTA - Breasts Breasts: normal - Cardiovascular Heart rate: 78 Rhythm: regular Heart Sounds: Present: S1 & S2. Absent: gallop, rub Extremities: pulses intact, No edema, normal color, Full ROM - Gastrointestinal General gastrointestinal: Present: soft, non-tender, non-distended, normal bowel sounds Localized gastrointestinal: tender: diffuse - Genitourinary Male genitourinary: normal - Integumentary Integumentary: clear, warm, dry - Musculoskeletal Musculoskeletal: 1, strength equal bilaterally - Neurologic Neurologic: moves all extremities - Psychiatric Psychiatric: memory intact, appropriate mood/affect, intact judgment & insight - Labs CBC & Chem 7: 03/30/20 04:55 03/30/20 04:55 Labs: Abnormal lab results 03/28/20 03/28/20 03/29/20 Range/Units 15:28 22:40 07:14 WBC 11.6 H (4.5-11.0) K/mm3 Seg Neutrophils # 8.0 H (1.8-7.7) K/mm3 Potassium (3.6-5.0) mmol/L Chloride (98-107) mmol/L Carbon Dioxide 21 L (22-30) mmol/L BUN 6 L (9-20) mg/dL Calcium (8.4-10.2) mg/dL Ur Specific [place] > 1.059 H (1.003-1.030) 03/29/20 Range/Units 07:14 WBC (4.5-11.0) K/mm3 Seg Neutrophils # (1.8-7.7) K/mm3 Potassium 3.5 L (3.6-5.0) mmol/L Chloride 111.0 H (98-107) mmol/L Carbon Dioxide (22-30) mmol/L BUN 8 L (9-20) mg/dL Calcium 8.2 L (8.4-10.2) mg/dL Ur Specific [place] (1.003-1.030)
[2020-03-29] MEDS ORDERED: ACETAMINOPHEN 325 MG TAB PO PRN (17:05)
[2020-03-29] MEDS ORDERED: PROMETHAZINE 25 MG RECT SUPP PR PRN (17:05)
[2020-03-29] MEDS ORDERED: ONDANSETRON 4 MG/2 ML INJ IV PRN (17:05)
[2020-03-29] MEDS ORDERED: METOCLOPRAMIDE 10 MG/2 ML INJ IV PRN (17:05)
[2020-03-29] MEDS ORDERED: KETOROLAC 30 MG/1 ML INJ IV PRN (17:09)
[2020-03-29] MEDS ORDERED: LACTULOSE 20 GM/30 ML ORAL LIQD PO PRN (17:10)
[2020-03-29] MEDS: PANTOPRAZOLE 40 MG INJ IV SCH (21:12)
[2020-03-29] MEDS: ONDANSETRON 4 MG/2 ML INJ IV PRN (21:12)
[2020-03-30 05:09] LABS: Basophils # (Auto) 0.1 K/mm3 (0.0-0.1); Basophils % (Auto) 0.5 % (0.0-1.8); Eosinophils % (Auto) 0.3 % (0.0-4.3); Hematocrit 46.6 % (35.5-45.6); Hemoglobin 15.5 gm/dl (11.8-15.2); Lymphocytes % (Auto) 26.2 % (13.4-35.0); Mean Corpuscular HGB Conc 33 % (32-34); Mean Corpuscular Volume 89 fl (84-94); Monocytes # (Auto) 0.8 K/mm3 (0.0-0.8); Monocytes % (Auto) 6.7 % (0.0-7.3); Platelet Count 238 K/mm3 (140-440); Red Blood Count 5.22 M/mm3 (3.65-5.03); Red Cell Distribution Width 14.3 % (13.2-15.2)
[2020-03-30] MEDS: SODIUM CHLORIDE 0.9% 1000 ML 1,000 ML IV SCH ×3 (05:17→21:28)
[2020-03-30] MEDS: ONDANSETRON 4 MG/2 ML INJ IV PRN (05:17)
[2020-03-30] MEDS: PIPERACIL/TAZOBACTA 4.5/NS 100 4.5 GM/100 ML VIAL IV SCH ×3 (05:17→21:27)
[2020-03-30 05:33] LABS: Alanine Aminotransferase 14 units/L (7-56); Albumin 3.5 g/dL (3.9-5); BUN/Creatinine Ratio 8; Blood Urea Nitrogen 6 mg/dL (9-20); Calcium 8.4 mg/dL (8.4-10.2); Hemolysis Index 6
[2020-03-30] MEDS: PANTOPRAZOLE 40 MG INJ IV SCH ×2 (09:14→21:26)
--- NOTE | 2020-03-30 09:42 | Progress Note ---
Assessment and Plan Assessment and plan: (1) Nausea and vomiting Current Visit: Yes Status: Acute Plan to address problem: Etiology is unclear. Patient has been placed on IV Zofran as needed. Patient still complaining nausea and vomiting. I am going to consult GI (2) Appendicitis Current Visit: Yes Status: Acute Plan to address problem: Consult placed to the general surgeon. Patient has also been placed on empiric IV antibiotics. Seen by surgeon yesterday and said patient does not have appendicitis and recommend GI consult (3) Abdominal pain Current Visit: Yes Status: Acute Plan to address problem: Possibly secondary to the intractable nausea and vomiting and also the underlying possible appendicitis. We will continue on IV analgesic medication. (4) DVT prophylaxis Current Visit: Yes Status: Acute Plan to address problem: Patient placed on sequential compression device. (5) Full code status Current Visit: Yes Status: Acute History Interval history: Patient was seen and evaluated this morning Patient is still complaining abdominal pain, nausea and vomiting Hospitalist Physical - Physical exam Narrative exam: Not in cardiopulmonary distress. The patient appeared well nourished and normally developed. Vital signs as documented. Head exam is unremarkable. No scleral icterus . Neck is without jugular venous distension, thyromegaly, or carotid bruits. Lungs are clear to auscultation. Cardiac exam reveals regular rate and Rhythm. Abdominal exam reveals mild tenderness in the epigastric area. Extremities are nonedematous and both femoral and pedal pulses are normal. 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 No focal weakness. - Constitutional Vitals: Temp Pulse Resp BP Pulse Ox 98.2 F 72 18 127/79 99 03/30/20 08:37 03/30/20 08:37 03/30/20 08:37 03/30/20 08:37 03/30/20 08:37 General appearance: Present: no acute distress, well-nourished Results - Labs CBC & Chem 7: 03/30/20 04:55 03/30/20 04:55 Labs: Laboratory Last Values WBC 11.5 K/mm3 (4.5-11.0) H 03/30/20 04:55 RBC 5.22 M/mm3 (3.65-5.03) H 03/30/20 04:55 Hgb 15.5 gm/dl (11.8-15.2) H 03/30/20 04:55 Hct 46.6 % (35.5-45.6) H 03/30/20 04:55 MCV 89 fl (84-94) 03/30/20 04:55 MCH 30 pg (28-32) 03/30/20 04:55 MCHC 33 % (32-34) 03/30/20 04:55 RDW 14.3 % (13.2-15.2) 03/30/20 04:55 Plt Count 238 K/mm3 (140-440) 03/30/20 04:55 Lymph % (Auto) 26.2 % (13.4-35.0) 03/30/20 04:55 Loving % (Auto) 6.7 % (0.0-7.3) 03/30/20 04:55 Eos % (Auto) 0.3 % (0.0-4.3) 03/30/20 04:55 Baso % (Auto) 0.5 % (0.0-1.8) 03/30/20 04:55 Lymph # (Auto) 3.0 K/mm3 (1.2-5.4) 03/30/20 04:55 Loving # (Auto) 0.8 K/mm3 (0.0-0.8) 03/30/20 04:55 Eos # (Auto) 0.0 K/mm3 (0.0-0.4) 03/30/20 04:55 Baso # (Auto) 0.1 K/mm3 (0.0-0.1) 03/30/20 04:55 Seg Neutrophils % 66.3 % (40.0-70.0) 03/30/20 04:55 Seg Neutrophils # 7.6 K/mm3 (1.8-7.7) 03/30/20 04:55 PT 13.8 Sec. (12.2-14.9) 03/29/20 07:14 INR 1.07 (0.87-1.13) 03/29/20 07:14 Sodium 140 mmol/L (137-145) 03/30/20 04:55 Potassium 3.9 mmol/L (3.6-5.0) 03/30/20 04:55 Chloride 108.5 mmol/L (98-107) H 03/30/20 04:55 Carbon Dioxide 22 mmol/L (22-30) 03/30/20 04:55 Anion Gap 13 mmol/L 03/30/20 04:55 BUN 6 mg/dL (9-20) L 03/30/20 04:55 Creatinine 0.8 mg/dL (0.8-1.3) 03/30/20 04:55 Estimated GFR > 60 ml/min 03/30/20 04:55 BUN/Creatinine Ratio 8 % 03/30/20 04:55 Glucose 75 mg/dL (75-100) 03/30/20 04:55 Calcium 8.4 mg/dL (8.4-10.2) 03/30/20 04:55 Total Bilirubin 0.60 mg/dL (0.1-1.2) 03/30/20 04:55 AST 16 units/L (5-40) 03/30/20 04:55 ALT 14 units/L (7-56) 03/30/20 04:55 Alkaline Phosphatase 58 units/L (35-129) 03/30/20 04:55 Total Protein 6.1 g/dL (6.3-8.2) L D 03/30/20 04:55 Albumin 3.5 g/dL (3.9-5) L 03/30/20 04:55 Albumin/Globulin Ratio 1.3 % 03/30/20 04:55 Lipase 34 units/L (13-60) 03/28/20 15:28 Urine Color Yellow (Yellow) 03/28/20 22:40 Urine Turbidity Clear (Clear) 03/28/20 22:40 Urine pH 6.0 (5.0-7.0) 03/28/20 22:40 Ur Specific [place] > 1.059 (1.003-1.030) H 03/28/20 22:40 Urine Protein <15 mg/dl mg/dL (Negative) 03/28/20 22:40 Urine Glucose (UA) Neg mg/dL (Negative) 03/28/20 22:40 Urine Ketones 80 mg/dL (Negative) 03/28/20 22:40 Urine Blood Neg (Negative) 03/28/20 22:40 Urine Nitrite Neg (Negative) 03/28/20 22:40 Urine Bilirubin Neg (Negative) 03/28/20 22:40 Urine Urobilinogen < 2.0 mg/dL (<2.0) 03/28/20 22:40 Ur Leukocyte Esterase Neg (Negative) 03/28/20 22:40 Urine WBC (Auto) < 1.0 /HPF (0.0-6.0) 03/28/20 22:40 Urine RBC (Auto) 2.0 /HPF (0.0-6.0) 03/28/20 22:40 U Epithel Cells (Auto) < 1.0 /HPF (0-13.0) 03/28/20 22:40 Urine Mucus Few /HPF 03/28/20 22:40 Mauricio/IV: Voiding Method Urinal IV Catheter Type [Right INT / Saline Lock Antecubital] Active Medications - Current Medications Current Medications: Generic Name Dose Route Start Last Admin Trade Name Freq PRN Reason Stop Dose Admin Acetaminophen 650 mg 03/28/20 22:43 Tylenol PO Q4H PRN Pain MILD(1-3)/Fever >100.5/WILEY Acetaminophen 650 mg 03/29/20 17:05 Tylenol PO Q4H PRN Pain MILD(1-3)/Fever >100.5/WILEY Sodium Chloride 1,000 mls @ 125 mls/hr 03/28/20 22:45 03/30/20 05:17 Nacl 0.9% 1000 Ml IV 125 mls/hr DIRECT MARCUS Administration Piperacillin Sod/Tazobactam Sod 4.5 gm in 100 mls @ 200 mls/hr 03/29/20 06:00 03/30/20 05:17 Zosyn/Ns 4.5gm/100ml IV 200 mls/hr Q8HR MARCUS Administration Protocol Ketorolac Tromethamine 30 mg 03/29/20 17:09 Toradol IV 04/03/20 17:08 Q6H PRN Pain, Moderate (4-6) Lactulose 20 gm 03/29/20 17:10 Cephulac PO QDAY PRN Constipation Metoclopramide HCl 10 mg 03/29/20 17:05 Reglan IV Q6H PRN Nausea And Vomiting Morphine Sulfate 2 mg 03/28/20 22:43 03/29/20 09:21 Morphine IV 2 mg Q4H PRN Administration Pain, Moderate (4-6) Ondansetron HCl 4 mg 03/28/20 22:43 03/30/20 05:17 Zofran IV 4 mg Q8H PRN Administration Nausea And Vomiting Ondansetron HCl 4 mg 03/29/20 17:05 Zofran IV Q3H PRN Nausea And Vomiting Pantoprazole Sodium 40 mg 03/29/20 22:00 03/30/20 09:14 Protonix IV 40 mg BID MARCUS Administration Promethazine HCl 25 mg 03/29/20 17:05 Phenergan NM Q6H PRN N/V IF NPO AND NO IV ACCESS Sodium Chloride 10 ml 03/29/20 10:00 03/30/20 09:14 Sodium Chloride Flush Syringe 10 Ml IV 10 ml BID MARCUS Administration Sodium Chloride 10 ml 03/28/20 22:43 03/29/20 02:35 Sodium Chloride Flush Syringe 10 Ml IV 10 ml PRN PRN Administration LINE FLUSH Sodium Chloride 10 ml 03/29/20 22:00 03/30/20 09:16 Sodium Chloride Flush Syringe 10 Ml IV Not Given BID MARCUS Sodium Chloride 10 ml 03/29/20 17:05 Sodium Chloride Flush Syringe 10 Ml IV PRN PRN LINE FLUSH
[2020-03-30] MEDS ORDERED: FLU VACC QUAD 2020-2021 (6 months +)/PF 60 0.5 ML SYRINGE IM ONE (12:00)
--- NOTE | 2020-03-30 15:04 | Progress Note ---
Assessment and Plan Diarhea apparently resolve, WBC trending down, abd exam relatively benign, GI consult pending, will repeat CT abd pelvis in am to evaluate for any further changes, I really do not think patient has appendicitis, I will be interested in GI medicine's opinion, seems to tolerate clears. Subjective Date of service: 03/30/20 Patient Reports: Positive: other (complains of abd pain, less now, crampy in nature with no charecteristic radiation, has not had bowel movement in 3 days.) Objective Vital Signs - 12hr 03/30/20 03/30/20 03/30/20 04:38 08:37 10:26 Temperature 98.0 F 98.2 F Pulse Rate 86 72 Respiratory 18 18 18 Rate Blood Pressure 125/89 127/79 O2 Sat by Pulse 98 99 100 Oximetry 03/30/20 12:47 Temperature 98.6 F Pulse Rate 76 Respiratory 18 Rate Blood Pressure 131/77 O2 Sat by Pulse 99 Oximetry - General physical appearance no distress - Eyes PERRL, normal occular movement - ENT normal pinna, normal nares, normal mucosa, no hearing loss, no congestion - Neck no masses, no bruits, trachea midline, no lymphadectomy, no venous distension - Respiratory normal expansion, normal respiratory effort, clear to percussion, clear to auscultation - Abdomen soft, bowel sounds normal, other (mildly tender to deep palpation RLQ and LLQ, no rebound or guarding) - Neurologic normal coordination, normal sensation - Labs 03/30/20 04:55 03/30/20 04:55 Diabetes panel 03/30/20 Range/Units 04:55 Sodium 140 (137-145) mmol/L Potassium 3.9 (3.6-5.0) mmol/L Chloride 108.5 H (98-107) mmol/L Carbon Dioxide 22 (22-30) mmol/L BUN 6 L (9-20) mg/dL Creatinine 0.8 (0.8-1.3) mg/dL Glucose 75 (75-100) mg/dL Calcium 8.4 (8.4-10.2) mg/dL AST 16 (5-40) units/L ALT 14 (7-56) units/L Alkaline Phosphatase 58 (35-129) units/L Total Protein 6.1 L D (6.3-8.2) g/dL Albumin 3.5 L (3.9-5) g/dL Calcium panel 03/30/20 Range/Units 04:55 Calcium 8.4 (8.4-10.2) mg/dL Albumin 3.5 L (3.9-5) g/dL Pituitary panel 03/30/20 Range/Units 04:55 Sodium 140 (137-145) mmol/L Potassium 3.9 (3.6-5.0) mmol/L Chloride 108.5 H (98-107) mmol/L Carbon Dioxide 22 (22-30) mmol/L BUN 6 L (9-20) mg/dL Creatinine 0.8 (0.8-1.3) mg/dL Glucose 75 (75-100) mg/dL Calcium 8.4 (8.4-10.2) mg/dL Adrenal panel 03/30/20 Range/Units 04:55 Sodium 140 (137-145) mmol/L Potassium 3.9 (3.6-5.0) mmol/L Chloride 108.5 H (98-107) mmol/L Carbon Dioxide 22 (22-30) mmol/L BUN 6 L (9-20) mg/dL Creatinine 0.8 (0.8-1.3) mg/dL Glucose 75 (75-100) mg/dL Calcium 8.4 (8.4-10.2) mg/dL Total Bilirubin 0.60 (0.1-1.2) mg/dL AST 16 (5-40) units/L ALT 14 (7-56) units/L Alkaline Phosphatase 58 (35-129) units/L Total Protein 6.1 L D (6.3-8.2) g/dL Albumin 3.5 L (3.9-5) g/dL
--- NOTE | 2020-03-31 05:36 | Event Note ---
Date: 03/31/20 VSS AF, GI consult pending, repeat CT abd pelvis to evaluate for acute appendictis versus colitis.
[2020-03-31] MEDS: PIPERACIL/TAZOBACTA 4.5/NS 100 4.5 GM/100 ML VIAL IV SCH ×3 (05:43→21:21)
[2020-03-31] MEDS: SODIUM CHLORIDE 0.9% 1000 ML 1,000 ML IV SCH ×2 (05:43→16:49)
[2020-03-31] MEDS: PANTOPRAZOLE 40 MG INJ IV SCH ×2 (09:09→21:20)
--- NOTE | 2020-03-31 09:15 | Progress Note ---
Assessment and Plan Assessment and plan: (1) Nausea and vomiting Current Visit: Yes Status: Acute Plan to address problem: Etiology is unclear. Patient has been placed on IV Zofran as needed. Patient still complaining nausea and vomiting. I am going to consult GI (2) Appendicitis Current Visit: Yes Status: Acute Plan to address problem: Consult placed to the general surgeon. Patient has also been placed on empiric IV antibiotics. Seen by surgeon yesterday and said patient does not have appendicitis and recommend GI consult (3) Abdominal pain Current Visit: Yes Status: Acute Plan to address problem: Possibly secondary to the intractable nausea and vomiting and also the underlying possible appendicitis. We will continue on IV analgesic medication. (4) DVT prophylaxis Current Visit: Yes Status: Acute Plan to address problem: Patient placed on sequential compression device. (5) Full code status Current Visit: Yes Status: Acute 03/31/2020 -Patient was seen by general surgery and ordered CT abdomen and pelvis, he does not think it is due to acute appendicitis. Follow the result of CAT scan. I put a consult for GI for further evaluation. Notify Dr. Lennon to see the patient today. History Interval history: Patient was seen and evaluated this morning Patient is still complaining abdominal pain, nausea and vomiting Hospitalist Physical - Physical exam Narrative exam: Not in cardiopulmonary distress. The patient appeared well nourished and normally developed. Vital signs as documented. Head exam is unremarkable. No scleral icterus . Neck is without jugular venous distension, thyromegaly, or carotid bruits. Lungs are clear to auscultation. Cardiac exam reveals regular rate and Rhythm. Abdominal exam reveals mild tenderness in the epigastric area. Extremities are nonedematous and both femoral and pedal pulses are normal. 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 No focal weakness. - Constitutional Vitals: Temp Pulse Resp BP Pulse Ox 98.1 F 66 18 143/83 98 03/31/20 07:22 03/31/20 07:22 03/31/20 07:22 03/31/20 07:22 03/31/20 07:22 General appearance: Present: no acute distress, well-nourished Results - Labs CBC & Chem 7: 03/30/20 04:55 03/30/20 04:55 Labs: Laboratory Last Values WBC 11.5 K/mm3 (4.5-11.0) H 03/30/20 04:55 RBC 5.22 M/mm3 (3.65-5.03) H 03/30/20 04:55 Hgb 15.5 gm/dl (11.8-15.2) H 03/30/20 04:55 Hct 46.6 % (35.5-45.6) H 03/30/20 04:55 MCV 89 fl (84-94) 03/30/20 04:55 MCH 30 pg (28-32) 03/30/20 04:55 MCHC 33 % (32-34) 03/30/20 04:55 RDW 14.3 % (13.2-15.2) 03/30/20 04:55 Plt Count 238 K/mm3 (140-440) 03/30/20 04:55 Lymph % (Auto) 26.2 % (13.4-35.0) 03/30/20 04:55 [place] % (Auto) 6.7 % (0.0-7.3) 03/30/20 04:55 Eos % (Auto) 0.3 % (0.0-4.3) 03/30/20 04:55 Baso % (Auto) 0.5 % (0.0-1.8) 03/30/20 04:55 Lymph # (Auto) 3.0 K/mm3 (1.2-5.4) 03/30/20 04:55 [place]les # (Auto) 0.8 K/mm3 (0.0-0.8) 03/30/20 04:55 Eos # (Auto) 0.0 K/mm3 (0.0-0.4) 03/30/20 04:55 Baso # (Auto) 0.1 K/mm3 (0.0-0.1) 03/30/20 04:55 Seg Neutrophils % 66.3 % (40.0-70.0) 03/30/20 04:55 Seg Neutrophils # 7.6 K/mm3 (1.8-7.7) 03/30/20 04:55 PT 13.8 Sec. (12.2-14.9) 03/29/20 07:14 INR 1.07 (0.87-1.13) 03/29/20 07:14 Sodium 140 mmol/L (137-145) 03/30/20 04:55 Potassium 3.9 mmol/L (3.6-5.0) 03/30/20 04:55 Chloride 108.5 mmol/L (98-107) H 03/30/20 04:55 Carbon Dioxide 22 mmol/L (22-30) 03/30/20 04:55 Anion Gap 13 mmol/L 03/30/20 04:55 BUN 6 mg/dL (9-20) L 03/30/20 04:55 Creatinine 0.8 mg/dL (0.8-1.3) 03/30/20 04:55 Estimated GFR > 60 ml/min 03/30/20 04:55 BUN/Creatinine Ratio 8 % 03/30/20 04:55 Glucose 75 mg/dL (75-100) 03/30/20 04:55 Calcium 8.4 mg/dL (8.4-10.2) 03/30/20 04:55 Total Bilirubin 0.60 mg/dL (0.1-1.2) 03/30/20 04:55 AST 16 units/L (5-40) 03/30/20 04:55 ALT 14 units/L (7-56) 03/30/20 04:55 Alkaline Phosphatase 58 units/L (35-129) 03/30/20 04:55 Total Protein 6.1 g/dL (6.3-8.2) L D 03/30/20 04:55 Albumin 3.5 g/dL (3.9-5) L 03/30/20 04:55 Albumin/Globulin Ratio 1.3 % 03/30/20 04:55 Lipase 34 units/L (13-60) 03/28/20 15:28 Urine Color Yellow (Yellow) 03/28/20 22:40 Urine Turbidity Clear (Clear) 03/28/20 22:40 Urine pH 6.0 (5.0-7.0) 03/28/20 22:40 Ur Specific [place] > 1.059 (1.003-1.030) H 03/28/20 22:40 Urine Protein <15 mg/dl mg/dL (Negative) 03/28/20 22:40 Urine Glucose (UA) Neg mg/dL (Negative) 03/28/20 22:40 Urine Ketones 80 mg/dL (Negative) 03/28/20 22:40 Urine Blood Neg (Negative) 03/28/20 22:40 Urine Nitrite Neg (Negative) 03/28/20 22:40 Urine Bilirubin Neg (Negative) 03/28/20 22:40 Urine Urobilinogen < 2.0 mg/dL (<2.0) 03/28/20 22:40 Ur Leukocyte Esterase Neg (Negative) 03/28/20 22:40 Urine WBC (Auto) < 1.0 /HPF (0.0-6.0) 03/28/20 22:40 Urine RBC (Auto) 2.0 /HPF (0.0-6.0) 03/28/20 22:40 U Epithel Cells (Auto) < 1.0 /HPF (0-13.0) 03/28/20 22:40 Urine Mucus Few /HPF 03/28/20 22:40 Mauricio/IV: Voiding Method Urinal IV Catheter Type [Right INT / Saline Lock Antecubital] Active Medications - Current Medications Current Medications: Generic Name Dose Route Start Last Admin Trade Name Freq PRN Reason Stop Dose Admin Acetaminophen 650 mg 03/28/20 22:43 Tylenol PO Q4H PRN Pain MILD(1-3)/Fever >100.5/WILEY Sodium Chloride 1,000 mls @ 125 mls/hr 03/28/20 22:45 03/31/20 05:43 Nacl 0.9% 1000 Ml IV 125 mls/hr DIRECT MARCUS Administration Piperacillin Sod/Tazobactam Sod 4.5 gm in 100 mls @ 200 mls/hr 03/29/20 06:00 03/31/20 05:43 Zosyn/Ns 4.5gm/100ml IV 200 mls/hr Q8HR MARCUS Administration Protocol Ketorolac Tromethamine 30 mg 03/29/20 17:09 Toradol IV 04/03/20 17:08 Q6H PRN Pain, Moderate (4-6) Lactulose 20 gm 03/29/20 17:10 Cephulac PO QDAY PRN Constipation Metoclopramide HCl 10 mg 03/29/20 17:05 Reglan IV Q6H PRN Nausea And Vomiting Morphine Sulfate 2 mg 03/28/20 22:43 03/29/20 09:21 Morphine IV 2 mg Q4H PRN Administration Pain, Moderate (4-6) Ondansetron HCl 4 mg 03/29/20 17:05 03/30/20 21:26 Zofran IV 4 mg Q3H PRN Administration Nausea And Vomiting Pantoprazole Sodium 40 mg 03/29/20 22:00 03/31/20 09:09 Protonix IV 40 mg BID MARCUS Administration Promethazine HCl 25 mg 03/29/20 17:05 Phenergan MN Q6H PRN N/V IF NPO AND NO IV ACCESS Sodium Chloride 10 ml 03/29/20 22:00 03/31/20 09:09 Sodium Chloride Flush Syringe 10 Ml IV 10 ml BID MARCUS Administration Sodium Chloride 10 ml 03/29/20 17:05 Sodium Chloride Flush Syringe 10 Ml IV PRN PRN LINE FLUSH
--- NOTE | 2020-03-31 10:25 | Cat Scan Report ---
CT ABDOMEN AND PELVIS WITH CONTRAST INDICATION / CLINICAL INFORMATION: Evaluate for acute appendicitis versus colitis. TECHNIQUE: Axial CT images were obtained through the abdomen and pelvis after IV contrast. All CT sc ans at this location are performed using CT dose reduction for ALARA by means of automated exposure c ontrol. COMPARISON: CT dated 03/28/2020. FINDINGS: LOWER CHEST: There are new trace bibasilar pleural effusions. LIVER: Probable right hepatic cysts. GALLBLADDER/BILIARY TREE: Unremarkable PANCREAS: Unremarkable SPLEEN: Unremarkable ADRENALS: Unremarkable KIDNEYS / URETER: Unremarkable URINARY BLADDER: Unremarkable REPRODUCTIVE ORGANS: Unremarkable STOMACH / SMALL BOWEL: Stomach and small bowel are normal in caliber. No evidence of bowel inflammati on. COLON: The colon is unremarkable. The appendix is normal in caliber. LYMPH NODES: No significant adenopathy. VASCULATURE: No significant abnormality. OTHER: Trace bland appearing free fluid in the pelvis. No intraperitoneal free air or focal fluid col lection. SKELETAL SYSTEM: No acute osseous findings. IMPRESSION: 1. New trace bibasilar pleural effusions and bland appearing free fluid in the pelvis. This may refle ct third spacing of fluid. 2. Otherwise, no acute process of the abdomen or pelvis. Normal appendix. Signer Name: Ward Harrison MD Signed: 03/31/2020 10:21 AM Workstation Name: [id number]
--- NOTE | 2020-03-31 10:51 | Event Note ---
Date: 03/31/[address] abd pelvis demonstrates normal appendix, normal colon, recc adv diet and discharge home, I will order reg diet and I will sign off, please reconsult me if needed. F/U with primary care, and or GI.
--- NOTE | 2020-03-31 11:27 | Gastroenterology Consultation ---
History of Present Illness - Reason for Consult Consult date: 03/31/20 abdominal pain, n/v Requesting physician: KRYSTAL BRIGGS - History of Present Illness The patient is a 49 yo aam who presents with generalized abd pain and n/v. pt reports having progressive gi symptoms of abd pain/mainly lower abd with n/v for the past 3-4 weeks. He was unable to tolerate liquids prior to arrival. Reports pain mainly in lower abd, was worse with po intake, has had dark stools for several weeks. initial ct scan on admission showed signs of possible appendicitis, however evaluated by surgery and not felt to be appendix, and repeat ct scan today was unremarkable. he has felt better last few days, reports improvement in abd pain, tolerating liquids and would like to try to eat. Past History Past Medical History: No medical history Past Surgical History: Other (Wrist surgery in the past) Social history: smoking (Former smoker) Family history: no significant family history Medications and Allergies Allergies Allergy/AdvReac Type Severity Reaction Status Date / Time No Known Allergies Allergy Verified 03/12/20 21:39 Home Medications Medication Instructions Recorded Confirmed Last Taken Type No Known Home Medications [No 03/29/20 03/29/20 Unknown History Reported Home Medications] Active Meds: Active Medications Acetaminophen (Tylenol) 650 mg PO Q4H PRN PRN Reason: Pain MILD(1-3)/Fever >100.5/WILEY Bisacodyl (Dulcolax) 10 mg ME QDAY PRN PRN Reason: constipation unrelieved by MOM Sodium Chloride (Nacl 0.9% 1000 Ml) 1,000 mls @ 125 mls/hr IV DIRECT MARCUS Last Admin: 03/31/20 05:43 Dose: 125 mls/hr Documented by: Piperacillin Sod/Tazobactam Sod (Zosyn/Ns 4.5gm/100ml) 4.5 gm in 100 mls @ 200 mls/hr IV Q8HR MARCUS; Protocol Last Admin: 03/31/20 05:43 Dose: 200 mls/hr Documented by: Ketorolac Tromethamine (Toradol) 30 mg IV Q6H PRN PRN Reason: Pain, Moderate (4-6) Stop: 04/03/20 17:08 Lactulose (Cephulac) 20 gm PO QDAY PRN PRN Reason: Constipation Metoclopramide HCl (Reglan) 10 mg IV Q6H PRN PRN Reason: Nausea And Vomiting Morphine Sulfate (Morphine) 2 mg IV Q4H PRN PRN Reason: Pain, Moderate (4-6) Last Admin: 03/29/20 09:21 Dose: 2 mg Documented by: Ondansetron HCl (Zofran) 4 mg IV Q3H PRN PRN Reason: Nausea And Vomiting Last Admin: 03/30/20 21:26 Dose: 4 mg Documented by: Pantoprazole Sodium (Protonix) 40 mg IV BID [facility] Last Admin: 03/31/20 09:09 Dose: 40 mg Documented by: Promethazine HCl (Phenergan) 25 mg ME Q6H PRN PRN Reason: N/V IF NPO AND NO IV ACCESS Sodium Chloride (Sodium Chloride Flush Syringe 10 Ml) 10 ml IV BID [facility] Last Admin: 03/31/20 09:09 Dose: 10 ml Documented by: Sodium Chloride (Sodium Chloride Flush Syringe 10 Ml) 10 ml IV PRN PRN PRN Reason: LINE FLUSH Reviewed/updated patient's home and current medications Review of Systems - Review of Systems All systems: negative (per HPI) Exam - Constitutional Vital Signs: Temp Pulse Resp BP Pulse Ox 98.1 F 66 20 143/83 98 03/31/20 07:22 03/31/20 07:22 03/31/20 10:00 03/31/20 07:22 03/31/20 10:00 General appearance: no acute distress - EENT Eyes: PERRL, EOM intact - Respiratory Respiratory effort: normal Respiratory: bilateral: CTA - Cardiovascular Rhythm: regular Heart Sounds: Present: S1 & S2 - Gastrointestinal General gastrointestinal: Present: soft, non-tender, non-distended - Integumentary Integumentary: Present: clear, warm - Neurologic Neurological: alert and oriented x3 - Psychiatric Psychiatric: appropriate mood/affect - Labs CBC & Chem 7: 03/30/20 04:55 03/30/20 04:55 - Imaging CT Scan: report reviewed Assessment and Plan 1. Abdominal pain with nausea/vomiting - sx's for a few weeks, unclear etiology of symptoms but has improved last few days. repeat ct scan today unremarkable. mild leukocytosis, but rest of labs normal. recommend advancing diet as tolerated, if tolerating po, can be discharged from gi stand point and f/u in gi clinic. if sx's return/unable to tolerate po, then may need EGD. 2. Dark stools - normal H/H and BUN so unlikely gi bleeding. diet as above and monitor
[2020-04-01 04:41] VITALS: BP 125/87
[2020-04-01] MEDS: PIPERACIL/TAZOBACTA 4.5/NS 100 4.5 GM/100 ML VIAL IV SCH (05:05)
--- NOTE | 2020-04-01 11:22 | Discharge Summary ---
Providers - Providers Date of Admission: 03/29/20 09:00 Date of discharge: 04/01/20 Attending physician: KRYSTAL BRIGGS MD 03/28/20 22:43 Consult to Physician [CONS] Routine Comment: Consulting Provider: CURT PICHARDO Physician Instructions: Reason For Exam: Abdominal pain, R/O Acute appendicitis 03/30/20 09:38 Consult to Physician [CONS] Routine Comment: Consulting Provider: MATHEUS FREIRE Physician Instructions: Reason For Exam: abdominal pain Primary care physician: ACCOUNTING/FINANCE TUTOR Hospitalization Reason for admission: abdominal pain. N/V, dark stool Condition: Stable Hospital course: 49-year-old -[place] male presenting to the emergency room today complaining of nausea and vomiting with accompanying abdominal pain. Patient has been seen in the emergency room on multiple occasions for similar complaints lately. This is his third visit to the emergency room. Abdominal pain is said to be more in the lower abdomen. He denies any fever or chills, no chest pain or shortness of breath, no headache or dizziness, he has had some increased frequency of urination and some minimal dysuria, denies any hematuria, no diarrhea, denies any recent travel or sick contacts, denies any contact with anyone with COVID-19. Work-up in the emergency room today reveals a possible developing appendicitis. Urinalysis and other labs has been unremarkable except for mild leukocytosis. Patient has been started on IV fluid, IV analgesic medication and empiric IV antibiotics. General surgeon on-call has been consulted by the ER physician. Patient was admitted to the floor and was evaluated by general surgery and general surgery does not think patient has appendicitis and repeat CAT scan of abdomen and pelvis was done and appendix was normal no significant abnormal findings. Surgery recommend GI consult. GI was consulted for nausea vomiting and dark stool. GI recommended to put the patient on pantoprazole and have follow-up as an outpatient for dark stool. Patient's hemoglobin is stable. Patient's abdominal pain, nausea vomiting subsided and discharged home. Patient was hemodynamically stable at the time of discharge. Patient scheduled to have follow-up with GI as an outpatient. Disposition: TO HOME OR SELFCARE Time spent for discharge: 32 minutes - Discharge Diagnoses (1) Dark stools Status: Acute (2) Gastritis and gastroduodenitis Status: Acute (3) Nausea and vomiting Status: Acute Qualifiers: Vomiting Intractability: intractable Core Measure Documentation - Palliative Care Palliative Care/ Comfort Measures: Not Applicable - Core Measures Any of the following diagnoses?: none Exam - Physical Exam Narrative exam: Not in cardiopulmonary distress. The patient appeared well nourished and normally developed. Vital signs as documented. Head exam is unremarkable. No scleral icterus . Neck is without jugular venous distension, thyromegaly, or carotid bruits. Lungs are clear to auscultation. Cardiac exam reveals regular rate and Rhythm. Abdominal exam reveals mild tenderness in the epigastric area. Extremities are nonedematous and both femoral and pedal pulses are normal. MEAT PUMPER: Alert and oriented 3. No focal weakness. - Constitutional Vitals: Temp Pulse Resp BP Pulse Ox 98.6 F 80 20 125/87 100 04/01/20 04:03 04/01/20 04:03 04/01/20 04:03 04/01/20 04:03 04/01/20 04:03 Plan Activity: no restrictions Weight Bearing Status: Full Weight Bearing Diet: regular Follow up with: PRIMARY MD LISA [Primary Care Provider] - 3-5 Days NADEEM AVILES MD [Staff Physician] - 7 Days Prescriptions: Lactulose [Kristalose] 20 gm PO QDAY #30 packet Pantoprazole [Protonix TAB] 40 mg PO BIDAC #60 tablet Metoclopramide [Reglan TAB] 10 mg PO ACHS #30 tablet
[2020-04-01] MEDS ORDERED: PANTOPRAZOLE 40 MG TAB PO SCH (16:30)
== END 2020-04-01 15:08 | disposition home or self-care (01) | DRG 379 ==
LOC: ED 13:34 → 3A 22:44 → 4A 23:36 → OBSVTOIN 03-29 09:00
PROVIDERS: ADMIT Internal Medicine Geriatric Medicine; ATTEND Internal Medicine
DX: K29.71 Gastritis, unspecified, with bleeding (principal); K29.91 Gastroduodenitis, unspecified, with bleeding; D72.829 Elevated white blood cell count, unspecified; K57.30 Diverticulosis of large intestine without perforation or abscess without bleeding; Z87.891 Personal history of nicotine dependence
CPT/HCPCS: 36415; 74177; 80048; 80053; 81001; 83690; 85025; 85610; 90686; 96365; 96375; G0378; C9113; J1885; J2270; J2405; J2543; J7030; Q9967